=== PATIENT | male | born 1985 | race Caucasian/White ===

== ENCOUNTER 2016-08-10 11:50 | Emergency (ER) | payer MEDICARE | END 2016-08-10 12:46 | disposition home or self-care (01) | LOC: ER1 11:50 | DX: S39.012A Strain of muscle, fascia and tendon of lower back, initial encounter (principal); X50.1XXA Overexertion from prolonged static or awkward postures, initial encounter | CPT/HCPCS: 72100; 96372; 99283; J1100; J1885 ==